=== PATIENT | male | born 1965 | race Two or more races ===

== ENCOUNTER 2022-03-05 07:30 | Inpatient (IN) | payer OTHER ==
[2022-03-05] VITALS (18 sets, daily range): BP systolic 102–134; BP diastolic 55–83
[~2022-03-05] VITALS: Ht 182.9 cm; Wt 71.3 kg
[~2022-03-05 07:30] MED LIST: NO HOME MEDS; ceFAZolin inj. 2,000 MG in dextrose 5%-water 100 ML IV ONE; famotidine 20mg tablet PO ONE; ringers solution, lacted 1,000 ML IV SCH; tranexamic acid inj. 1,000 MG in normal saline 100ml IV soln 100 ML IV ONE; vancomycin/NS 1 GM in NS 250 ML IV ONE
[2022-03-05] MEDS ORDERED: vancomycin 1,000mg inj ONE (09:51)
[2022-03-05] MEDS ORDERED: IBUP-1984 PO (10:05)
[2022-03-05] MEDS ORDERED: ASPI-1264 PO (10:05)
[2022-03-05] MEDS ORDERED: ACET-1008 PO (10:05)
[2022-03-05] MEDS ORDERED: tetracaine 1% (10mg/ml) pres. free inj. ONE (11:00)
[2022-03-05] MEDS ORDERED: MIDAZolam 1mg/ml 10ml vial ONE (11:01)
[2022-03-05] MEDS ORDERED: morphine /PF 1mg/ml 10ml inj. ONE (11:01)
[2022-03-05] MEDS ORDERED: propofol inj 20 ML IV ONE ×2 (12:12→12:33)
[2022-03-05] MEDS ORDERED: LIDOcaine 2% (20mg/ml) 5ml vial ONE (12:12)
[2022-03-05] MEDS ORDERED: fentaNYL/PF 50MCG/1 ML 2ML syringe IV PRN ×2 (12:15)
[2022-03-05] MEDS ORDERED: diphenhydrAMINE 50 mg/ml inj IV PRN (12:15)
[2022-03-05] MEDS ORDERED: hydrALAZINE 20mg/ml inj. IV PRN (12:15)
[2022-03-05] MEDS ORDERED: morphine 4 MG/ML inj SYRINge IV PRN (12:15)
[2022-03-05] MEDS ORDERED: naloxone 0.4 mg/ml inj IV PRN ×2 (12:15→14:05)
[2022-03-05] MEDS ORDERED: ondansetron/PF 4mg/2ml inj IV PRN ×3 (12:15→14:05)
[2022-03-05] MEDS ORDERED: ringers solution, lacted 1,000 ML IV SCH (12:15)
[2022-03-05] MEDS ORDERED: enalaprilat dihydrate 2.5mg/2ml vial IV PRN (12:15)
[2022-03-05] MEDS ORDERED: morphine 2 MG/ML inj. syringe IV PRN (12:15)
[2022-03-05] MEDS ORDERED: ePHEDrine 50MG/ML INJ. ONE (12:57)
--- NOTE | 2022-03-05 14:03 | NUR ---
Received from OR via HOSPITAL BED, accompanied by Anesthesiologist and report given by ALANNAH Anesthesiologist. PT WAKING UP. VSS. PT PRESENTS WITH PIV 20G LEFT FOREARM, HIP WRAP WITH POWDER PACK, ADDUCTOR PILLOW, DISTAL PULSES NOTED. Addendum: 03/05/22 at 1446 by Raheem Chavis RN Amended: Links added.
[2022-03-05] MEDS ORDERED: HYDROmorphone inj. 0.5 MG/0.5 ML DISP.SYRIN IV PRN (14:05)
[2022-03-05] MEDS ORDERED: magnesium hydroxide 30ml (MOM) UD suspension PO PRN (14:05)
[2022-03-05] MEDS ORDERED: acetaminophen 325mg tablet PO PRN (14:05)
[2022-03-05] MEDS ORDERED: HYDROmorphone 1 mg/ml syringe IV PRN (14:05)
[2022-03-05] MEDS ORDERED: diphenhydrAMINE 25mg capsule PO PRN ×2 (14:05)
[2022-03-05] MEDS ORDERED: oxyCODONE IR 5mg (immed. release) tablet PO PRN (14:05)
[2022-03-05] MEDS ORDERED: bisacodyl 10mg suppository rectal RC PRN (14:05)
--- NOTE | 2022-03-05 14:53 | NUR ---
PATIENT HAS MET ALL CRITERIA FOR TRANSFER TO ORTHO FLOOR. VSS. DRESSINGS INTACT. BED LOW, CALL LIGHT PRESENT AND 2 RAILS UP. RN PRESENT TO ACCEPT CARE OF PATIENT AND REPORT HAS BEEN CALLED. ALL QUESTIONS ANSWERED TO ACCEPTING RN. Addendum: 03/05/22 at 1507 by Raheem Chavis RN Amended: Links added.
[2022-03-05] MEDS ORDERED: tranexamic acid inj. 700 MG in normal saline 100ml IV soln 93 ML IV ONE (17:00)
[2022-03-05] MEDS: potassium cl 20mEq in 1/2 NS 1,000 ML IV SCH (18:47)
[2022-03-05] MEDS: ceFAZolin/D5W- 1GM premix 50 ML IV SCH (18:47)
[2022-03-05] MEDS ORDERED: vancomycin/NS 1 GM ADD-VANTAGE 250 ML IV SCH (20:00)
[2022-03-05] MEDS: acetaminophen 325mg tablet PO SCH (20:10)
[2022-03-05] MEDS: gabapentin 300mg capsule PO SCH (20:11)
[2022-03-05] MEDS ORDERED: sennosides 8.6mg tablet PO SCH (21:00)
[2022-03-05] MEDS: oxyCODONE IR 5mg (immed. release) tablet PO PRN (23:10)
[2022-03-06] MEDS: ceFAZolin/D5W- 1GM premix 50 ML IV SCH (01:20)
[2022-03-06] MEDS: acetaminophen 325mg tablet PO SCH ×2 (01:21→07:47)
[2022-03-06 02:00] VITALS: BP 120/70
--- NOTE | 2022-03-06 02:43 | NUR ---
MANUFACTURER AGENT documentation: I have reviewed and agree with all interventions, assessments performed and documented by Winter CORREIA.
[2022-03-06] MEDS: oxyCODONE IR 5mg (immed. release) tablet PO PRN ×3 (03:02→11:19)
[2022-03-06] MEDS: potassium cl 20mEq in 1/2 NS 1,000 ML IV SCH ×2 (05:09→06:05)
--- NOTE | 2022-03-06 06:27 | NUR ---
Problems reprioritized. Patient report given, questions answered & plan of care reviewed with John THORNE.
[2022-03-06] MEDS: gabapentin 300mg capsule PO SCH (07:46)
[2022-03-06] MEDS ORDERED: enoxaparin 40mg/0.4ml syringe SQ SCH (08:00)
--- NOTE | 2022-03-06 09:44 | NUR ---
Joint surgery consult: Pt s/p R hip surgery this admit per EMR. Pt seen by TREVON for written/verbal high protein diet ed w/ RD contact information provided. Addendum: 03/06/22 at [address] Amended: Links added.
[2022-03-06] MEDS ORDERED: celeCOXIB 100mg capsule PO SCH (20:00)
[2022-03-07] MEDS ORDERED: acetaminophen 325mg tablet PO PRN (14:05)
== END 2022-03-06 11:45 | DRG 470 ==
LOC: PAS IN 08:50 → EEVIPCON 11:00 → ORTHO 4S 14:58
PROVIDERS: ADMIT Orthopaedic Surgery; ATTEND Orthopaedic Surgery
PROC: 0SR901A Replacement of Right Hip Joint with Metal Synthetic Substitute, Uncemented, Open Approach (ICD-10-PCS; principal; 2022-03-05 11:16)
DX: M16.11 Unilateral primary osteoarthritis, right hip (principal); I48.20 Chronic atrial fibrillation, unspecified; Z20.822 Contact with and (suspected) exposure to COVID-19; F41.9 Anxiety disorder, unspecified; Z79.899 Other long term (current) drug therapy; Z79.82 Long term (current) use of aspirin
CPT/HCPCS: 36415; 72170; 73501; 82948; 86885; 86900; 86901; 87635; 97116; 97161; 97530; A4215; A6258; A7000; C1758; C1776; C9250; G0378; J0690; J1650; J2250; J2274; J2704; J3370; J3480; J3490; J7060; J7120